=== PATIENT | female | born 1995 | race Caucasian/White ===

== ENCOUNTER 2022-04-20 18:41 | Outpatient (CLI) | payer MEDICARE, MEDICAID ==
[~2022-04-20] VITALS: Ht 152.4 cm; Wt 70.5 kg
[2022-04-20 19:09] VITALS: BP 111/82; PULSE 102; TEMP 98.3
[2022-04-20 19:14] VITALS: TEMP 98.3
[2022-04-20 20:14] VITALS: BP 125/79; PULSE 107; TEMP 98.3
[2022-04-20 20:25] VITALS: TEMP 98.2
--- NOTE | 2022-04-20 20:27 | NUR ---
PT UP TO BR TO VOID. PERICARE DONE. PAD AND PANTIE ON. PT BACK TO BED. WARM BLANKETS PLACED ON PT.
--- NOTE | 2022-04-20 20:35 | NUR ---
IV ANTIBIOTICS COMPLETE, IV FLUIDS COMPLETE. SITE WAS SALINE LOCKED AND FLUSHED. TRANSPORT TEAM HERE TO [employer] PT AND TRANSFER TO [facility]. REPORT GIVEN TO THE TEAM. PT AMB TO THE GURNEY ON HER OWN. COVERED AND SECRUED IN. THE TEAM AND PT LEFT AT 2040. REPORT WAS CALLED TO KIANA PALMER RN AT [facility] L&D. ETA FOR THE TEAM IS 1 HOUR.
== END 2022-04-20 20:41 | disposition short-term general hospital (02) ==
LOC: LDRO 18:41 → LDR 18:41 → LDRO 20:41
DX: O42.90 Premature rupture of membranes, unspecified as to length of time between rupture and onset of labor, unspecified weeks of gestation (principal); Z3A.00 Weeks of gestation of pregnancy not specified
CPT/HCPCS: OP; J0290; J0456; J0702; J7050; J7120